=== PATIENT | female | born 1970 | race Caucasian/White ===

== ENCOUNTER 2016-12-08 09:34 | Emergency (ER) | payer OTHER ==
[~2016-12-08] VITALS: Ht 157.5 cm; Wt 64.5 kg
[2016-12-08 09:41] VITALS: BP 135/72
--- NOTE | 2016-12-08 10:31 | NUR ---
PT AMBULATED TO BED 2 AT THIS TME.
--- NOTE | 2016-12-08 10:35 | NUR ---
PATIENT PRESENTS TO ED WITH C/O RIGHT SHOULDER PAIN X2 MONTHS CONSTANT--WORSE WHEN PUSHING OR PULLING WITH RIGHT ARM . DENIES N/V/D; SKIN IS PINK/WARM/DRY; AAOX4 WITH EVEN AND STEADY GAIT; LUNGS CLEAR BL; HR EVEN AND REGULAR; PT DENIES ANY FEVER, SOB, OR COUGH AT THIS TIME; PATIENT STATES PAIN OF 8/10 AT THIS TIME; PATIENT POSITIONED FOR COMFORT; HOB ELEVATED; BEDRAILS UP X2; BED DOWN. ER MD MADE AWARE OF PT STATUS.
--- NOTE | 2016-12-08 10:46 | NUR ---
URINE DIPSTICK RESULT AND PREGNACY TEST RELAYED TO DR JUNIOR.
--- NOTE | 2016-12-08 11:25 | NUR ---
Patient being evaluated by DR JUNIOR at bedside.
[2016-12-08] MEDS ORDERED: KETOROLAC 60 MG/2 ML VIAL IM ONE (11:30)
[2016-12-08 12:09] VITALS: BP 115/73
--- NOTE | 2016-12-08 12:09 | NUR ---
Patient discharged with v/s stable. Written and verbal after care instructions given and explained. Patient alert, oriented and verbalized understanding of instructions. Ambulatory with steady gait. All questions addressed prior to discharge. ID band removed. Patient advised to follow up with PMD. Rx of NORCRO given. Patient educated on indication of medication including possible reaction and side effects. Opportunity to ask questions provided and answered.
== END 2016-12-08 12:09 | disposition home or self-care (01) ==
LOC: MED 09:34
DX: M25.511 Pain in right shoulder (principal)
CPT/HCPCS: 73030; 81002; 81025; 96372; 99284; J1885